=== PATIENT | male | born 1960 | race Caucasian/White ===

== ENCOUNTER 2016-08-18 06:47 | Day surgery (SDC) | payer OTHER ==
[2016-08-18] MEDS ORDERED: LR 1,000 ML ONE (07:00)
[2016-08-18] MEDS ORDERED: PEPCID ONE (07:00)
[2016-08-18] MEDS ORDERED: REGLAN ONE (07:00)
[2016-08-18] MEDS: KEFZOL 2 GM/D5W 50 ML ONE ×2 (07:40→08:12)
[2016-08-18] MEDS ORDERED: MARCAINE 0.25% PF/EPI 1:200,000 ONE (08:00)
[2016-08-18] MEDS ORDERED: XYLOCAINE 1% ONE (08:01)
[2016-08-18] MEDS: DEMEROL ONE ×2 (09:25→09:26)
--- NOTE | 2016-08-18 09:33 | OPERATIVE NOTE ---
PROCEDURE DATE: 08/18/2016 PREOPERATIVE DIAGNOSES: 1. Infected sebaceous cyst on the posterior aspect of the right head. 2. Multiple sclerosis. POSTOPERATIVE DIAGNOSES: 1. Infected sebaceous cyst on the posterior aspect of the right head. 2. Multiple sclerosis. PROCEDURE PERFORMED: Excision of infected sebaceous cyst on right posterior head. SURGEON: Louie Marks MD LEAD TECHNOLOGIST IN CYTOGENETICS: None. ANESTHESIA: General tracheal. INTRAOPERATIVE FINDINGS: As above. COMPLICATIONS: None at the time of dictation. ESTIMATED BLOOD LOSS: 300 mL. SPECIMENS REMOVED: Cyst. BRIEF HISTORY: The patient is a 56-year-old gentleman with multiple sclerosis who had an infected sebaceous cyst that was drained by his primary care physician. He wanted this area remove. It is on the posterior aspect of his scalp. Given his multiple sclerosis, we would like to this in the hospital. The risks, benefits, and alternatives were discussed. He voiced understanding and wished to proceed with the procedure. DESCRIPTION OF PROCEDURE: After informed consent was obtained, the patient was brought to the operative theatre and transferred to the operative table and placed in the supine position. General tracheal anesthesia was then performed without complication. The patient was then repositioned in the lateral position to expose this area in the right posterior of his scalp. This area was prepped and draped in a sterile fashion. It should be noted that we marked, confirmed, and identified this area with the patient in preoperative holding. After a formal time out, we made a linear incision over this area. We did encounter purulence. We able to completely remove the cyst wall in its entirety. There were 2 small bleeding arteries that were feeding the cyst that accounted for the 30 mL of blood loss. We suture ligated them. We irrigated out the area copiously with saline and local anesthetic. We packed the area until hemostasis was achieved. We reexamined the area. There was no active bleeding. We closed the skin loosely with 3-0 chromic and placed a pressure dressing. The patient tolerated the procedure well and was transferred to the recovery room in stable condition.
[2016-08-18 10:13] VITALS: BP 123/71
[2016-08-18] MEDS ORDERED: FENTANYL ONE (10:26)
[2016-08-18] MEDS ORDERED: DIPRIVAN 1% ONE (10:27)
[2016-08-18] MEDS ORDERED: ZOFRAN ONE (10:36)
[2016-08-18] MEDS ORDERED: XYLOCAINE-MPF 2% ONE (10:36)
[2016-08-18] MEDS ORDERED: ROBINUL ONE (10:36)
[2016-08-18] MEDS ORDERED: VERSED ONE (15:08)
== END 2016-08-18 10:13 | disposition home or self-care (01) ==
LOC: OPS 06:47
PROVIDERS: ATTEND Surgery
DX: L72.0 Epidermal cyst (principal); G35 Multiple sclerosis; Z87.891 Personal history of nicotine dependence
CPT/HCPCS: 88304; J0690; J2175; J2250; J2405; J3010; J7120